=== PATIENT | female | born 1990 | race Caucasian/White ===

== ENCOUNTER 2022-06-10 23:27 | Observation (INO) ==
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
[2022-06-10 23:49] VITALS: BMI 24.4
[2022-06-10] MEDS ORDERED: NS 1,000 ML IV 1,000 ML ONE (23:53)
[2022-06-11] MEDS ORDERED: NS 1,000 ML IV 1,000 ML IV ONE ×2 (00:11→01:57)
[2022-06-11 00:38] LABS: BASOPHILS # (AUTO) 0.1 X10^3/uL (0.0-0.1); BASOPHILS % (AUTO) 0.2 % (0.2-1.0); EOSINOPHILS # (AUTO) 0.1 x10^3/uL (0.0-0.2); EOSINOPHILS % (AUTO) 0.4 % (0.9-2.9); HEMATOCRIT 40.9 % (36.0-47.0); LYMPHOCYTES # (AUTO) 2.7 X10^3/uL (1.3-2.9); LYMPHOCYTES % (AUTO) 9.4 % (21.0-51.0); MEAN CORPUSCULAR HEMOGLOBIN 29.7 pg (27.0-34.0); MEAN CORPUSCULAR HGB CONC 34.2 g/dL (33.0-35.0); MEAN CORPUSCULAR VOLUME 86.8 fL (80.0-100.0); MEAN PLATELET VOLUME 8.9 fL (7.4-11.0); MONOCYTES # (AUTO) 1.3 x10^3/uL (0.3-0.8); MONOCYTES % (AUTO) 4.5 % (0.0-13.0); NEUTROPHILS # (AUTO) 24.5 x10^3/uL (2.2-4.8); NEUTROPHILS % (AUTO) 85.5 % (42.0-75.0); RED BLOOD COUNT 4.71 X10^6/uL (3.5-5.4); RED CELL DISTRIBUTION WIDTH 12.9 % (11.6-16.5); WHITE BLOOD COUNT 28.7 X10^3/uL (3.6-10.0)
[2022-06-11 00:57] LABS: ALANINE AMINOTRANSFERASE 14 Units/L (12-78); ALBUMIN 3.7 g/dL (3.4-5.0); ALKALINE PHOSPHATASE 70 Units/L (46-116); ASPARTATE AMINO TRANSFERASE 9 Units/L (15-37); BLOOD UREA NITROGEN 25 mg/dL (7-18); CALCIUM 8.1 mg/dL (8.5-10.1); CARBON DIOXIDE 21.9 mmol/L (21-32); CHLORIDE 102 mmol/L (98-107); CREATININE 1.07 mg/dL (0.55-1.02); MAGNESIUM 2.4 mg/dL (1.7-2.9); SODIUM 137 mmol/L (136-145); TOTAL PROTEIN 6.9 g/dL (6.4-8.2); eGFR NON BLACK RACES > 60 (>60)
[2022-06-11 01:14] LABS: PLATELET MORPHOLOGY COMMENT NORMAL (NORMAL)
[2022-06-11] MEDS ORDERED: K-DUR TAB 20 MEQ PO STA (01:57)
[2022-06-11] MEDS ORDERED: ATARAX TAB 25 MG PO PRN (02:08)
[2022-06-11] MEDS ORDERED: ZOFRAN INJ 4 MG VIAL IVP PRN (02:08)
[2022-06-11] MEDS ORDERED: K-DUR TAB 20 MEQ PO ONE ×2 (02:16→08:00)
[2022-06-11] MEDS ORDERED: NS 1,000 ML IV 1,000 ML ONE (02:16)
[2022-06-11 05:22] LABS: BASOPHILS % (AUTO) 0.1 % (0.2-1.0); EOSINOPHILS % (AUTO) 0.1 % (0.9-2.9); HEMATOCRIT 37.1 % (36.0-47.0); HEMOGLOBIN 12.6 g/dL (12.0-16.0); LYMPHOCYTES # (AUTO) 2.2 X10^3/uL (1.3-2.9); LYMPHOCYTES % (AUTO) 10.3 % (21.0-51.0); MEAN CORPUSCULAR HEMOGLOBIN 29.8 pg (27.0-34.0); MEAN CORPUSCULAR HGB CONC 33.9 g/dL (33.0-35.0); MEAN CORPUSCULAR VOLUME 87.8 fL (80.0-100.0); MEAN PLATELET VOLUME 9.6 fL (7.4-11.0); MONOCYTES # (AUTO) 0.6 x10^3/uL (0.3-0.8); MONOCYTES % (AUTO) 3.1 % (0.0-13.0); NEUTROPHILS # (AUTO) 18.1 x10^3/uL (2.2-4.8); NEUTROPHILS % (AUTO) 86.4 % (42.0-75.0); RED BLOOD COUNT 4.23 X10^6/uL (3.5-5.4); RED CELL DISTRIBUTION WIDTH 12.9 % (11.6-16.5); WHITE BLOOD COUNT 20.9 X10^3/uL (3.6-10.0)
[2022-06-11 05:44] LABS: ALANINE AMINOTRANSFERASE 15 Units/L (12-78); ALBUMIN 3.2 g/dL (3.4-5.0); ALKALINE PHOSPHATASE 63 Units/L (46-116); ASPARTATE AMINO TRANSFERASE 8 Units/L (15-37); BLOOD UREA NITROGEN 21 mg/dL (7-18); CALCIUM 7.5 mg/dL (8.5-10.1); CARBON DIOXIDE 24.5 mmol/L (21-32); CHLORIDE 105 mmol/L (98-107); COR CA(FOR HYPOALB) 8.1 mg/dL (8.5-10.1); CREATININE 0.72 mg/dL (0.55-1.02); SODIUM 138 mmol/L (136-145); TOTAL PROTEIN 6.1 g/dL (6.4-8.2); TSH (3RD GENERATION) 0.642 uIU/mL (0.358-3.74); eGFR NON BLACK RACES > 60 (>60)
[2022-06-11 07:36] LABS: BILIRUBIN,URINE NEGATIVE (NEGATIVE); BLOOD/HEMOGLOBIN,URINE NEGATIVE (NEGATIVE); GLUCOSE, URINE NEGATIVE (NEGATIVE); KETONES,URINE 4+ (NEGATIVE); LEUKOCYTE ESTERASE ,URINE NEGATIVE (NEGATIVE); NITRITES,URINE NEGATIVE (NEGATIVE); PROTEIN,URINE 2+ (NEGATIVE); UROBILINOGEN,URINE NORMAL (NORMAL)
[2022-06-11 08:00] LABS: APPEARANCE,URINE HAZY (CLEAR); COLOR,URINE YELLOW (YELLOW)
[2022-06-11 08:01] LABS: BACTERIA,URINE 2+ /HPF (NEGATIVE); RBC,URINE NONE SEEN /HPF (0-3); SQUAMOUS EPITHELIAL CELL,UR FEW /HPF (NEGATIVE)
[2022-06-11] MEDS ORDERED: IMODIUM CAP 2 MG PO PRN (08:18)
[2022-06-11 11:06] VITALS: BP 116/75
[2022-06-11] MEDS ORDERED: ROBAXIN PO PRN (11:46)
--- NOTE | 2022-06-11 12:37 | DR.SSS ---
SHORT STAY SUMMARY Admission Date Date of Admission: 06/10/22 Discharge Date Discharge Date: 06/11/22 Admission Diagnoses Admission Diagnoses: Acute hypotension Discharge Diagnoses Discharge Diagnoses: Acute hypotension UTI Chief Complaint Chief Complaint: Lightheaded Dizziness History of Present Illness History of Present Illness: Pt is a 32 year old female past medical history of Bipolar disorder that presented to the ED with low blood pressure. She had reported symptoms of dizziness and feeling lightheaded. She was started this past month on clonidine for anxiety and was taking it three times a day. In the ED, her blood pressure was noted to be in 60/40s. Past Surgical History Surgical History: Appendectomy, Cholecystectomy and Hysterectomy Allergies Allergies Allergy/AdvReac Type Severity Reaction Status Date / Time levetiracetam [From [facility]] Allergy Verified 06/10/22 23:50 tramadol Allergy Verified 06/10/22 23:50 Medications Home Medications: levetiracetam [From [facility]] Allergy (Verified 06/10/22 23:50) tramadol Allergy (Verified 06/10/22 23:50) CONTINUE taking the following medications cariprazine 1.5 mg capsule (Vraylar) 1 cap PO QPM 06/10/22 [History] methocarbamol 500 mg tablet 1 tab PO BID PRN 06/10/22 [History] olanzapine 5 mg tablet (Zyprexa) 1 tab PO QPM 06/10/22 [History] quetiapine 50 mg tablet 1 tab PO QPM 06/10/22 [History] New Prescriptions cephalexin 500 mg capsule 500 mg PO BID 7 days #14 caps 06/11/22 [Rx] Family History Family Medical History: Diabetes Mellitus and Hypertension Social History Does patient currently use any type of tobacco product: Yes Have you used tobacco products in the last 12 months: Yes Type of Tobacco Use: Cigarettes Does any household member use tobacco: No Alcohol Use: None Drug Use: Marijuana Review of Systems Constitutional: Weakness Eyes: No Symptoms Reported ENT: No Symptoms Reported Respiratory: No Symptoms Reported Cardiovascular: No Symptoms Reported Gastrointestinal: No Symptoms Reported Genitourinary: No Symptoms Reported Musculoskeletal: No Symptoms Reported Skin: No Symptoms Reported Neurological: Other (Dizziness, lightheaded) Physical Exam Vital Signs: Last Vital Signs Temp 98 F 06/11/22 04:00 Pulse 99 H 06/11/22 11:02 Resp 42 H 06/11/22 11:02 BP 116/75 06/11/22 11:02 Pulse Ox 96 06/11/22 07:45 O2 Del Method Room Air 06/11/22 07:00 Oriented: Normal Eyes: Normal Ear: Normal Respiratory: Clear Throughout Cardiovascular: Normal : Normal Auscultation: Bowel Sounds: Normal Palpation: Normal Tenderness: Normal Skin: Normal Musculoskeletal: Normal Psychiatric: Normal Mood Description: Calm Speech Pattern: Clear Labs Labs: Laboratory Last Values WBC 20.9 X10^3/uL (3.6-10.0) H 06/11/22 04:20 RBC 4.23 X10^6/uL (3.5-5.4) 06/11/22 04:20 Hgb 12.6 g/dL (12.0-16.0) 06/11/22 04:20 Hct 37.1 % (36.0-47.0) 06/11/22 04:20 MCV 87.8 fL (80.0-100.0) 06/11/22 04:20 MCH 29.8 pg (27.0-34.0) 06/11/22 04:20 MCHC 33.9 g/dL (33.0-35.0) 06/11/22 04:20 RDW 12.9 % (11.6-16.5) 06/11/22 04:20 Plt Count 306 X10^3/uL (150.0-450.0) 06/11/22 04:20 Plt Count Comment Adequate (ADEQUATE) 06/11/22 00:25 MPV 9.6 fL (7.4-11.0) 06/11/22 04:20 Neut % (Auto) 86.4 % (42.0-75.0) H 06/11/22 04:20 Lymph % (Auto) 10.3 % (21.0-51.0) L 06/11/22 04:20 [place] % (Auto) 3.1 % (0.0-13.0) 06/11/22 04:20 Eos % (Auto) 0.1 % (0.9-2.9) L 06/11/22 04:20 Baso % (Auto) 0.1 % (0.2-1.0) L 06/11/22 04:20 Neut # (Auto) 18.1 x10^3/uL (2.2-4.8) H 06/11/22 04:20 Lymph # (Auto) 2.2 X10^3/uL (1.3-2.9) 06/11/22 04:20 [place] # (Auto) 0.6 x10^3/uL (0.3-0.8) 06/11/22 04:20 Eos # (Auto) 0.0 x10^3/uL (0.0-0.2) 06/11/22 04:20 Baso # (Auto) 0.0 X10^3/uL (0.0-0.1) 06/11/22 04:20 Absolute Nucleated RBC 0.0 /100WBC 06/11/22 04:20 Total Counted 100 06/11/22 00:25 Neutrophils % (Manual) 82 % (39-76) H 06/11/22 00:25 Lymphocytes % (Manual) 13 % (13-43) 06/11/22 00:25 Monocytes % (Manual) 4 % (4-9) 06/11/22 00:25 Eosinophils % (Manual) 1 % (0-6) 06/11/22 00:25 Atypical Lymphocytes Few A 06/11/22 00:25 Plt Morphology Comment Normal (NORMAL) 06/11/22 00:25 RBC Morphology Normal (NORMAL) 06/11/22 00:25 Sodium 138 mmol/L (136-145) 06/11/22 04:20 Corrected Sodium TNP 06/11/22 04:20 Potassium 3.8 mmol/L (3.5-5.1) 06/11/22 04:20 Chloride 105 mmol/L (98-107) 06/11/22 04:20 Carbon Dioxide 24.5 mmol/L (21-32) 06/11/22 04:20 BUN 21 mg/dL (7-18) H 06/11/22 04:20 Creatinine 0.72 mg/dL (0.55-1.02) 06/11/22 04:20 Est GFR (MDRD) Af Amer > 60 (>60) 06/11/22 04:20 Est GFR (MDRD) Non-Af > 60 (>60) 06/11/22 04:20 Glucose 98 mg/dL (65-99) 06/11/22 04:20 POC Glucose (mg/dL) 99 mg/dL (65-99) 06/11/22 05:11 Lactic Acid 0.6 mmol/L (0.4-2.0) 06/11/22 02:19 Calcium 7.5 mg/dL (8.5-10.1) L 06/11/22 04:20 Corrected Calcium 8.1 mg/dL (8.5-10.1) L 06/11/22 04:20 Magnesium 2.4 mg/dL (1.7-2.9) 06/11/22 00:25 Total Bilirubin 0.60 mg/dL (0.2-1.0) 06/11/22 04:20 AST 8 Units/L (15-37) L 06/11/22 04:20 ALT 15 Units/L (12-78) 06/11/22 04:20 Alkaline Phosphatase 63 Units/L (46-116) 06/11/22 04:20 Troponin I High Sens 6.4 ng/L (4.0-60.0) 06/11/22 00:25 Total Protein 6.1 g/dL (6.4-8.2) L 06/11/22 04:20 Albumin 3.2 g/dL (3.4-5.0) L 06/11/22 04:20 Globulin 2.9 g/dL (2.5-4.5) 06/11/22 04:20 Albumin/Globulin Ratio 1.1 Ratio (1.1-2.1) 06/11/22 04:20 TSH 3rd Generation 0.642 uIU/mL (0.358-3.74) 06/11/22 04:20 Specimen Type Clean catch urine 06/11/22 07:20 Urine Color Yellow (YELLOW) 06/11/22 07:20 Urine Appearance Hazy (CLEAR) 06/11/22 07:20 Urine pH 6.0 (5.0 - 8.0) 06/11/22 07:20 Ur Specific [place] 1.025 (1.000-1.030) 06/11/22 07:20 Urine Protein 2+ (NEGATIVE) 06/11/22 07:20 Urine Glucose (UA) Negative (NEGATIVE) 06/11/22 07:20 Urine Ketones 4+ (NEGATIVE) 06/11/22 07:20 Urine Blood Negative (NEGATIVE) 06/11/22 07:20 Urine Nitrite Negative (NEGATIVE) 06/11/22 07:20 Urine Bilirubin Negative (NEGATIVE) 06/11/22 07:20 Urine Urobilinogen Normal (NORMAL) 06/11/22 07:20 Ur Leukocyte Esterase Negative (NEGATIVE) 06/11/22 07:20 Urine RBC None seen /HPF (0-3) 06/11/22 07:20 Urine WBC 3-5 /HPF (0-5) 06/11/22 07:20 Ur Squamous Epith Cells Few /HPF (NEGATIVE) 06/11/22 07:20 Urine Bacteria 2+ /HPF (NEGATIVE) 06/11/22 07:20 Urine Mucus Few /HPF (NEGATIVE) 06/11/22 07:20 Ur Culture Indicated? Yes/culture set up 06/11/22 07:20 Assessment/Plan (1) Acute hypotension: (2) Acute hypokalemia: (3) Urinary tract infection: Hospital Course Hospital Course: Pt was given 2L NS bolus in the ER with good blood pressure response. She was monitored on the medical floor. Labs/imaging:Wbc 28>20, Hgb 12.6, Plt 306, Na 138, K 3.2>3.8, Creatinine 0.72, Glucose 98, LA 0.6, TSH 0.64. On exam patient reports feeling normal with no concerns or complaints, reports feeling alot better and initial symptoms resolved. She was instructed to discontinue taking clonidine. Potassium was repleted per protocol. Her leukocytosis responded and trended down with IVF. Believe it to be due to dehydration however UA triggered urine culture to be done. Pt is asymptomatic, however will treat due to still elevated wbc while awaiting urine culture results that can be followed up outpatient. Rx keflex. Pt discharged in stable condition. Instructed to follow up with pcp in 3-5 days. Discharge Medications Discharge Medications: Home Medication List cariprazine 1.5 mg capsule (Vraylar) 1 cap PO QPM 06/10/22 [History] methocarbamol 500 mg tablet 1 tab PO BID PRN 06/10/22 [History] olanzapine 5 mg tablet (Zyprexa) 1 tab PO QPM 06/10/22 [History] quetiapine 50 mg tablet 1 tab PO QPM 06/10/22 [History] cephalexin 500 mg capsule 500 mg PO BID 7 days #14 caps 06/11/22 [Rx] Prescriptions: Abran Littlejohn Discharge Disposition Discharge Disposition: Home Discharge Plan Discharge Plan Patient Disposition: 01 HOME, SELF-CARE Condition: Stable Health Concerns: Post Hospitalization: new medications and changes needed to prevent readmission or further decline. Pt educated and given instructions on all concerns. Plan of Treatment: Continue with present treatment and follow up plan. Pt is to keep follow up appointment as instructed and take medications as ordered. Prescriptions: New cephalexin 500 mg capsule 500 mg PO BID 7 Days Qty: 14 0RF Continued methocarbamol 500 mg tablet 1 tab PO BID PRN olanzapine [Zyprexa] 5 mg tablet 1 tab PO QPM quetiapine 50 mg tablet 1 tab PO QPM Vraylar 1.5 mg capsule 1 cap PO QPM Discontinued clonidine HCl 0.1 mg tablet 1 tab PO TID PRN Orders to Discharge Patient Discharge Orders: Discharge (Routine); Ordered 06/11/22 Ordered By: Abran Hernandez Follow ups/Referrals Follow ups/Referrals: DAVIDA FALCON [Primary Care Provider] - 3 days Instructions Stand Alone Forms: Excuse From Work or School, Precautions for COVID19, [facility], Patient Portal, Social Distancing
== END 2022-06-11 13:30 | disposition home or self-care (01) ==
LOC: ICU 23:30 → ER 23:30 → ICU 06-11 02:28
PROVIDERS: ADMIT Family Medicine; ATTEND Family Medicine
DX: F31.89 Other bipolar disorder; Z87.828 Personal history of other (healed) physical injury and trauma; E86.0 Dehydration; R19.7 Diarrhea, unspecified; N39.0 Urinary tract infection, site not specified; R63.4 Abnormal weight loss; R42 Dizziness and giddiness; E87.6 Hypokalemia; R94.31 Abnormal electrocardiogram [ECG] [EKG]; I95.89 Other hypotension